=== PATIENT | female | born 1940 | race Caucasian/White ===

== ENCOUNTER 2023-11-04 18:13 | Inpatient (IN) | payer OTHER, SELFPAY ==
[2023-11-04] VITALS (15 sets, daily range): BP systolic 114–168; BP diastolic 62–80; PULSE 83–104; BMI 22.3
--- NOTE | 2023-11-04 12:27 | ED.GENMED ---
History of Present Illness
<Aliya Ram PA-C - Last Filed: 11/04/23 17:04>
General
Chief Complaint: Failure to Thrive
Source: patient
Exam Limitations: none
Time Seen by Provider: 11/04/23 12:26
Nursing documentation reviewed up to this point in time: agreed with
Travel History
Have you had any contact with someone who has COVID-19?: No
Do you have any symptoms of coronavirus? Fever > 100 degrees, chills, cough, shortness of breath, sore throat, loss of taste or smell, muscle aches, or headache?: No
History of Present Illness
History of Present Illness:
83-year-old female with a past medical history of hypertension, hyperlipidemia, NIDDM, CVA presenting emergency department today with her son with concerns of dizziness, recurrent falls, incontinence/decreased appetite. Son reports that over the
past few months, patient has been falling more often. Son reports that patient lives alone in her own house with no home nurse/health aid and he will come to visit her and he will tell her that she felt these before. Patient unable to recall the
exact details of these falls, but she does report that are usually due to her dizziness. Patient reports that she has been feeling dizzy over the past few weeks and feels like she might faint when she walks around. She states that when she walks,
she will have to to grab onto something, and she often will fall because of this. Patient recently fell 2 days ago and she is unable to recall the mechanism of injury, unable to recall if she hit her head, but does recall that she felt dizzy prior.
Son reports that when he visits her recently, she is also been sleeping way more the past few weeks, and has had coughing and decreased appetite the past week. Son and patient also reports that there has been increasing urinary incontinence the
past few months and patient has had to rely on diapers. Patient denies any fevers or chills, dysuria, chest pain, abdominal pain, headache. She does have some associated nausea with her dizziness denies any vomiting. She does have occasional
shortness of breath with ambulating.
Past History
<Aliya Ram PA-C - Last Filed: 11/04/23 17:04>
Past History
ED Past Medical History: CVA, HTN, Hypercholesterolemia and NIDDM
ED Past Surgical History: Orthopedic
Social History
Tobacco: Non-smoker
Alcohol: None
Drug: None
Personal:
Living: with family
Employment: Employed
Family History
Family History: Other (Noncontributory)
Review of Systems
<Aliya Ram PA-C - Last Filed: 11/04/23 17:04>
Review of Systems
All Other Systems: ROS reviewed and negative except as documented in HPI and ROS
Phy Exam
<Aliya Ram PA-C - Last Filed: 11/04/23 17:04>
Physical Exam
Physical Exam:
Vitals: Vital signs are stable
General: Patient appears older than stated age, ill-appearing
Skin: Warm and dry, some scattered areas of ecchymosis on the anterior shins bilaterally, no other signs of trauma
Head: Normocephalic, atraumatic, no tenderness palpation, no palpable hematomas
Cardiac: Regular rate and rhythm, no murmurs, rubs, gallops. Tenderness palpation of the right lower external chest wall, no crepitus.
Peripheral vascular: No lower extremity edema, 2+ dorsalis pedis pulses bilaterally.
Pulm: Regular respiratory effort, decreased lung sounds on the right side, no wheezes, rales, rhonchi.
Abdomen: No ecchymosis, no abdominal scars, no signs of trauma. No abdominal tenderness to palpation.
Musculoskeletal: As expressed above, patient does have tenderness palpation of the right lower chest wall. Patient has no tenderness palpation bilateral hips. Patient has full range of motion bilateral upper extremities. No tenderness to
palpation of the cervical, thoracic, lumbar spine. Patient seen spontaneously moving cervical spine.
Neuro: Patient is oriented to person and place but not time. Patient is lethargic and will appear to fall asleep when not talking to her or addressing her by name. CN II-XII intact, finger to nose testing, heel to sin testing intact.
Course
<Aliya Ram PA-C - Last Filed: 11/04/23 17:04>
Orders/Labs/Results
Orders:
Orders
11/04/23 12:51
0.9% Sodium Chloride 500 ml [Nss] 500 ml IV BOLUS
11/04/23 12:56
Electrocardiogram (*1) Urgent
Reason for Study: Shortness of Breath
EKG- Treatment ONCE
11/04/23 12:57
CT Head W/o Iv Contrast Urgent
Comment:
Reason For Exam: altered mental status, fall
Cardiac Monitoring- Treatment ONCE
11/04/23 13:03
CPK [Creatine Phosphokinase] Urgent
Complete Blood Count/With Diff Urgent
Comprehensive Metabolic Panel Urgent
Magnesium Urgent
Troponin I Urgent
11/04/23 13:05
Urinalysis Reflex To Culture Urgent
Date Specimen was Collected: 11/04/23
Time Specimen was Collected: 13:04
Urine Microscopic Reflex Cult Urgent
Urine Culture Urgent
BRANDI Source: U
Specimen Description:
Date Specimen was Collected: 11/04/23
Time Specimen was Collected: 13:04
11/04/23 13:21
CR Ribs-right 3 Vw W/pa Chest* Urgent
Comment:
Reason For Exam: right sided rib pain, shortness of breath
11/04/23 13:22
COVID-19 Antigen Urgent
Source: Nasal Swab
11/04/23 13:32
Orthostatic VS- Treatment ONCE
11/04/23 14:06
Magnesium Sulfate 1 grams 0.9% Sodium Chloride 100 ml [Nss] 100 ml IV NOW
11/04/23 14:15
0.9% Sodium Chloride 1000 ml [Nss] 1,000 ml IV 100 mls/hr
Abnormal Lab Results
11/04/23 11/04/23
13:03 13:05
RBC 3.11 L 10^6/uL
(4.20-5.40)
Hgb 10.5 L g/dL
(12.0-16.0)
Hct 28.7 L %
(37.0-47.0)
MCH 33.8 H pg
(27.0-31.0)
Absolute Lymphs (auto) 1.1 L 10^3/uL
(1.2-3.4)
Lymphocytes % 19.1 L %
(20.5-51.1)
Monocytes % 10.1 H %
(1.7-9.3)
Sodium 129 L mmol/L
(135-145)
Chloride 95 L mmol/L
(98-107)
BUN 61 H mg/dl
(7-17)
Creatinine 1.6 H mg/dL
(0.6-1.0)
Glucose 314 H mg/dl
(70-99)
Calcium 12.8 H mg/dl
(8.4-10.2)
Magnesium 1.2 L mg/dl
(1.6-2.3)
Creatine Kinase < 20 L U/L
(30-135)
Troponin I 0.057 H* ng/ml
Leukocyte Esterase Rfl 1+ A
(Negative)
Urine RBC 3-6 A /HPF
(0-2)
Urine Bacteria (Reflex) Few A
(Negative)
Urine Glucose Trace A
(Negative)
Urine Albumin (Reflex) 1+ A
(Neg - Trace)
11/04/23 13:03
03/03/24 13:03
Vital Signs
Initial and Last Documented VS:
Initial Vital Signs
Temp Pulse Resp BP Pulse Ox
98.5 F 91 16 124/74 97
11/04/23 12:21 11/04/23 12:21 11/04/23 12:21 11/04/23 12:21 11/04/23 12:21
Last Documented Vital Signs
Temp Pulse Resp BP Pulse Ox
98.5 F 78 19 135/63 99
11/04/23 12:21 11/04/23 16:30 11/04/23 16:30 11/04/23 16:00 11/04/23 16:30
<Samm Muñoz MD - Last Filed: 11/04/23 15:55>
Orders/Labs/Results
Orders:
Orders
11/04/23 12:51
0.9% Sodium Chloride 500 ml [Nss] 500 ml IV BOLUS
11/04/23 12:56
Electrocardiogram (*1) Urgent
Reason for Study: Shortness of Breath
EKG- Treatment ONCE
11/04/23 12:57
CT Head W/o Iv Contrast Urgent
Comment:
Reason For Exam: altered mental status, fall
Cardiac Monitoring- Treatment ONCE
11/04/23 13:03
CPK [Creatine Phosphokinase] Urgent
Complete Blood Count/With Diff Urgent
Comprehensive Metabolic Panel Urgent
Magnesium Urgent
Troponin I Urgent
11/04/23 13:05
Urinalysis Reflex To Culture Urgent
Date Specimen was Collected: 11/04/23
Time Specimen was Collected: 13:04
Urine Microscopic Reflex Cult Urgent
Urine Culture Urgent
BRANDI Source: U
Specimen Description:
Date Specimen was Collected: 11/04/23
Time Specimen was Collected: 13:04
11/04/23 13:21
CR Ribs-right 3 Vw W/pa Chest* Urgent
Comment:
Reason For Exam: right sided rib pain, shortness of breath
11/04/23 13:22
COVID-19 Antigen Urgent
Source: Nasal Swab
11/04/23 13:32
Orthostatic VS- Treatment ONCE
11/04/23 14:06
Magnesium Sulfate 1 grams 0.9% Sodium Chloride 100 ml [Nss] 100 ml IV NOW
11/04/23 14:15
0.9% Sodium Chloride 1000 ml [Nss] 1,000 ml IV 100 mls/hr
Abnormal Lab Results
11/04/23 11/04/23
13:03 13:05
RBC 3.11 L 10^6/uL
(4.20-5.40)
Hgb 10.5 L g/dL
(12.0-16.0)
Hct 28.7 L %
(37.0-47.0)
MCH 33.8 H pg
(27.0-31.0)
Absolute Lymphs (auto) 1.1 L 10^3/uL
(1.2-3.4)
Lymphocytes % 19.1 L %
(20.5-51.1)
Monocytes % 10.1 H %
(1.7-9.3)
Sodium 129 L mmol/L
(135-145)
Chloride 95 L mmol/L
(98-107)
BUN 61 H mg/dl
(7-17)
Creatinine 1.6 H mg/dL
(0.6-1.0)
Glucose 314 H mg/dl
(70-99)
Calcium 12.8 H mg/dl
(8.4-10.2)
Magnesium 1.2 L mg/dl
(1.6-2.3)
Creatine Kinase < 20 L U/L
(30-135)
Troponin I 0.057 H* ng/ml
Leukocyte Esterase Rfl 1+ A
(Negative)
Urine RBC 3-6 A /HPF
(0-2)
Urine Bacteria (Reflex) Few A
(Negative)
Urine Glucose Trace A
(Negative)
Urine Albumin (Reflex) 1+ A
(Neg - Trace)
11/04/23 13:03
11/04/23 13:03
Vital Signs
Initial and Last Documented VS:
Initial Vital Signs
Temp Pulse Resp BP Pulse Ox
98.5 F 91 16 124/74 97
11/04/23 12:21 11/04/23 12:21 11/04/23 12:21 11/04/23 12:21 11/04/23 12:21
Last Documented Vital Signs
Temp Pulse Resp BP Pulse Ox
98.5 F 78 19 135/63 99
11/04/23 12:21 11/04/23 16:30 11/04/23 16:30 11/04/23 16:00 11/04/23 16:30
<Aliya Ram PA-C - Last Filed: 11/04/23 17:04>
MDM/Problems Addressed
Differential Diagnosis Includes:
Differentials include dementia, urinary tract infection, pneumonia, COVID-19 infection, right rib fracture, pneumothorax, hemothorax
MDM/Problems Addressed:
incontinence
decreased appetite
deconditioning
dizziness
Chronic conditions affecting care: DM and HTN
Acute Exacerbation and/or Progression of Chronic Illness: DM and HTN
<Aliya Ram PA-C - Last Filed: 11/04/23 17:04>
*Pulse Oximetry
Patient hypoxic: no
*Molder Shoulder Pad Interpretation
Rate: normal
Heart Rate: 88
Rhythm: sinus and other (spinal stimulator interference )
*Critical Care Note
Total Time (30-74mins, 75-104mins- exclusive of procedures): Not Applicable
Data Reviewed
Review of Other/Old Records Reveals: Records (reviewed ER physician documentation from 05/22/21, 06/12/18) and Discharge Summary (reviewed discharge summary from 09/13/11)
Source: patient and records
<Aliya Ram PA-C - Last Filed: 11/04/23 17:04>
Patient Management
Escalation/DeEscalation of care consider admission/obs:
83-year-old female with a past medical history of hypertension, hyperlipidemia, NIDDM, CVA presenting emergency department today with her son with concerns of dizziness, recurrent falls, incontinence/decreased appetite. Son reports that over the
past few months, patient has been falling more often. Patient unable to recall the exact details of these falls, but she does report that are usually due to her dizziness. On physical exam, patient appears dehydrated and has tenderness to palpation
of the right ribs. CR negative for rib fracture, pneumonia. CMP consistent with dehydration and electrolyte abnormalities. We will plan to admit for continued IV fluids, electrolyte repletion, further evaluation of her dizziness. Patient accepted by
hospitalist.
ED Attending Note
<Aliya Rma PA-C - Last Filed: 11/04/23 17:04>
-
Portions of this chart may have been created with voice recognition software.� Occasional wrong word or��sound alike� substitutions may have occurred due to the inherent limitations of voice recognition software.
<Samm Muñoz MD - Last Filed: 11/04/23 15:55>
ED Attending Note
Patient seen and examined by attending physician: Yes
ED Attending Note:
Patient presents to ED secondary to generalized weakness, along with decreased oral intake due to lack of appetite over the past 2 weeks, which has caused patient to fall multiple times. Patient denies loss of consciousness. Patient denies any
injuries from the fall, but does report scraping of her knee from the fall. Denies headache. Denies blurred vision. Denies dizziness. Denies chest pain or shortness of breath. Denies vomiting or diarrhea. Per family, patient has lost
significant weight due to lack of oral intake. Patient current lives at home alone.
Physical Exam
General: mild distress, not acutely ill. afebrile. weak appearing.
Head: nc/at. eomi
Neck: supple. normal range of motion.
Heart: s1/s2 regular rate and rhythm, no murmur. equal radial pulses.
Lungs: no acute respiratory distress. clear bilaterally
Abdomen: normal bowel sounds. not tender.
Neuro: alert and oriented. no focal neurological deficits. normal speech.
Skin: no rash
Psychiatric: well kept. interactive and cooperative
Extremities: no edema. no calf tenderness.
History and exam along with blood work significant for electrolyte abnormalities as well as acute renal failure, consistent with moderate dehydration. Patient will be admitted for continued IV fluids and further evaluation. Patient may benefit
from case management consultation, as patient's long-term safety is in question, as patient currently lives alone.
Discharge Plan
Departure
Patient Disposition: Admit
Date of Disposition: 11/04/23
Time of Disposition: 16:53
Admit to doctor: Dr. Martin
Presentation/result/management discussed w/ accepting MD/DO: Hospitalist
Patient with high blood pressure during this ER visit?: Yes
Condition: Good
Discharge Problem:
Dizziness, Acute kidney injury
Prescriptions:
No Action
atorvastatin 40 MG tablet
40 mg PO DAILY
ascorbic acid (vitamin C) [Vitamin C] 500 MG tablet
1,000 mg PO DAILY
glipizide 5 MG tablet
10 mg PO DAILY
cholecalciferol (vitamin D3) 2,000 UNITS tablet
2,000 unit PO DAILY
Ca-D3-mag uz-qaxv-sil-sherlyn-bor [Calcium 600-D3 Plus (mag-zinc)] 1 EACH tablet
2 ea PO DAILY
cyanocobalamin (vitamin B-12) 1,000 mcg Tablet
1,000 mcg PO DAILY
fexofenadine [Viktoriya] 180 mg Tablet
180 mg PO DAILY
aspirin 81 mg Tablet,Delayed Release (Dr/Ec)
81 mg PO DAILY
losartan-hydrochlorothiazide 100-25 mg Tablet
1 tab PO DAILY
Patient Comments:
no pharmacy data for fills
glipizide 5 mg Tablet
5 mg PO QPM
Fiber Choice Tablet,Chewable
2 tab PO BID
venlafaxine 225 mg Tablet Extended Release 24hr
225 mg PO DAILY
Trulicity 1.5 mg/0.5 mL Pen Injector
1.5 mg SC TINAJERO
IBgard 90 mg Capsule,Delayed,Extend.Release
90 mg PO TID
Referrals:
Alejandro Hernandez MD [Family Provider] -
Interventions
Interventions:
*Risk Screen - Suicide Last Done: 11/04/23 12:21
*Neglect/Abuse Screening Last Done: 11/04/23 12:21
*ED COVID-19 Vaccine History Last Done: 11/04/23 12:21
[2023-11-04] MEDS: NSS 500 IV (13:06)
[2023-11-04 13:16] LABS: % Basophils 0.5 % (0-2); % Eosinophils 2.2 % (0-6); % Immature Granulocytes 0.5 % (0-0.5); % Lymphocytes 19.1 % (20.5-51.1); % Monocytes 10.1 % (1.7-9.3); % Neutrophils 67.6 % (42.2-75.2); Absolute Eosinophils 0.1 10^3/uL (0-0.7); Absolute Lymphocytes 1.1 10^3/uL (1.2-3.4); Absolute Monocytes 0.6 10^3/uL (0.1-0.6); Absolute Neutrophils 3.8 10^3/uL (1.4-6.5); Hematocrit 28.7 % (37.0-47.0); Hemoglobin 10.5 g/dL (12.0-16.0); Mean Corp Hgb Conc. 36.6 g/dL (33.0-37.0); Mean Corpuscular Hgb 33.8 pg (27.0-31.0); Mean Corpuscular Volume 92.3 fL (81.0-99.0); Mean Platelet Volume 9.4 fL (7.4-10.4); Nucleated Red Blood Cells % 0 %; Platelet Count 207 10^3/uL (130-400); Red Blood Cell Count 3.11 10^6/uL (4.20-5.40); Red Cell Dist. Width 13.6 % (11.5-14.5); White Blood Cell Count 5.6 10^3/uL (4.8-10.8)
[2023-11-04 13:24] LABS: Urine Albumin 1+ (Neg - Trace); Urine Bilirubin Negative (Negative); Urine Character Clear (Clear); Urine Color Yellow; Urine Glucose Trace (Negative); Urine Ketone Negative (Negative); Urine Leukocyte 1+ (Negative); Urine Nitrite Negative (Negative); Urine Occult Blood Negative (Negative); Urine Specific Gravity 1.025 (<1.030); Urine Urobilinogen Negative (Neg - 1+)
[2023-11-04 13:32] LABS: Urine Mucus Few; Urine Squamous Cell 21-25 /LPF (Few)
[2023-11-04 13:33] LABS: Urine Bacteria Few (Negative)
[2023-11-04 13:34] LABS: ALT (SGPT) 35 U/L (0-35); AST (SGOT) 30 U/L (14-36); Alkaline Phosphatase 77 U/L (38-126); Blood Urea Nitrogen 61 mg/dl (7-17); Calcium 12.8 mg/dl (8.4-10.2); Carbon Dioxide 29 mmol/L (22-30); Chloride 95 mmol/L (98-107); Creatine Phosphokinase < 20 U/L (30-135); Glucose 314 mg/dl (70-99); Magnesium 1.2 mg/dl (1.6-2.3); Potassium 3.9 mmol/L (3.5-5.1); Sodium 129 mmol/L (135-145); Total Bilirubin 0.7 mg/dl (0.2-1.3); Total Protein 6.8 g/dl (6.3-8.2); eGFR 31.41
[2023-11-04 13:43] LABS: COVID-19 Antigen Negative (Negative)
[2023-11-04 13:57] LABS: Troponin I 0.057 ng/ml
[2023-11-04] MEDS: MAGNESIUM SULFATE 102 GRAMS IV (14:40)
[2023-11-04] MEDS: NSS 1000 IV (14:41)
--- NOTE | 2023-11-04 17:29 | HPS.HSE ---
Addendum entered and electronically signed by Maritza Martin MD 11/04/23 23:16:
For hyponatremia and KENNA, holding the hctz. Continuing losartan for BP control as expectation is to improve with IV fluids.
Original Note:
Family Physician
-
Family Physician: Alejandro Hernandez
Chief Complaint
-
Dizziness and failure to thrive
History of Present Illness
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
for dizziness, recurrent falls and decreased oral intake.
Family did noted as symptoms began most significantly about a week ago where she essentially stopped eating. She was only supplemented myself with the boost or Ensure. Patient reports decreased appetite but denies any difficulty with chewing or
swallowing. She denies vomiting. She denies regurgitation. She denies abdominal pain or discomfort. After the fall recently she did have right-sided upper quadrant/CVA pain. She does report increased urinary frequency. She believes is
secondary to stimulator that she has in her back. She denies dysuria. She denies hematuria. Patient denies dyspepsia, hematemesis, melena or hematochezia. She denies having any diarrhea. She has not had any fevers or chills. She denies cold
cough or flulike symptoms. She is mostly inactive but denies any specific weakness. She has noncommittal statement regarding heat or cold intolerance. She denies any changes to the color of her eyes or skin or changes to the color of her stool.
She was seen at the PMD clinic about a month ago and at that time was noted to have significantly elevated triglycerides in the 500s, elevated cholesterol as well uncontrolled blood glucose in the 300s. Patient reports compliance with medication
but not convincingly so. She denies vertigo. She does feel lightheaded and has to hold onto something when she is standing and walking.
On arrival in the ED she was normotensive, nontachycardic with a oxygen saturation of 90% on nasal cannula. ECG w/ NSR, no acute ST or t wave changes. Troponin was 0.05. She has no chest pain. Chest x-ray was clear with some atelectasis. CT of
the head was negative. UA was unremarkable. COVID test was negative. CBC was unremarkable. Chemistries does show hyponatremia with a sodium of 129, azotemia with a BUN of 69 and a creatinine of 1.6 with a blood glucose of 314. Magnesium was 1.2.
Medical History
Past Medical History
Past Medical History: Reports CVA, HTN, Hypercholesterolemia and NIDDM
Past Surgical History: Reports None
Social History
Tobacco: Non-smoker
Alcohol: None
Drug: None
Personal: Single
Living: Alone
Employment: Retired
Family History
Family History: Not pertinent
Allergies / Home Medications
Allergies reflects when Allergies were last updated in [employer].
Home Medications with original date entered in [employer]
Allergy/Medication List:
Allergies
Allergy/AdvReac Type Severity Reaction Status Date / Time
No Known Allergies Allergy Verified 05/22/21 14:52
Home Medications
Ca 600 mg-D3 20 mcg-mag oxide 50 iq-Ku-qbcyeu-manganese-boron tablet (Calcium 600-D3 Plus (mag-zinc)) 2 ea PO DAILY 06/12/18
ascorbic acid (vitamin C) 500 mg tablet (Vitamin C) 1,000 mg PO DAILY 06/12/18
atorvastatin 40 mg tablet 40 mg PO DAILY 06/12/18
cholecalciferol (vitamin D3) 50 mcg (2,000 unit) tablet 2,000 unit PO DAILY 06/12/18
glipizide 5 mg tablet 10 mg PO DAILY 06/12/18
aspirin 81 mg tablet,delayed release 81 mg PO DAILY 11/04/23
cyanocobalamin (vitamin B-12) 1,000 mcg tablet 1,000 mcg PO DAILY 11/04/23
dulaglutide 1.5 mg/0.5 mL subcutaneous pen injector ([facility]) 1.5 mg SC TINAJERO 11/04/23
fexofenadine 180 mg tablet 180 mg PO DAILY 11/04/23
fiber 2 tab PO BID 11/04/23
glipizide 5 mg tablet 5 mg PO QPM 11/04/23
losartan 100 mg-hydrochlorothiazide 25 mg tablet 1 tab PO DAILY 11/04/23
peppermint oil 90 mg capsule,delayed,extended release (IBgard) 90 mg PO TID 11/04/23
venlafaxine 225 mg tablet,extended release 24 hr 225 mg PO DAILY 11/04/23
Review of Systems
-
History Source: Patient and Family
Constitutional: Reports No Symptoms
EENT: Reports No Symptoms
Respiratory: Reports No Symptoms
Cardiac: Reports No Symptoms
Abdomen/GI: Reports Nausea
: Reports Frequency
Musculoskeletal: Reports No Symptoms
Skin: Reports No Symptoms
Neurological: Reports Dizzy
Endocrine: Reports No Symptoms
Hematologic/Lymphatic: Reports No Symptoms
Psych: Reports No Symptoms
Physical Exam
Vital Signs
Vital Signs
Temp Pulse Resp BP Pulse Ox
98.5 F 85 20 140/62 99
11/04/23 12:21 11/04/23 17:15 11/04/23 17:00 11/04/23 17:00 11/04/23 17:15
Physical Exam
General: No Apparent Distress
HEENT: NormoCephalic, Anicteric, Moist mucous membranes, Atraumatic, PERRLA, [place] Conjunctivae, No Ptosis and Oxygen
Respiratory: Clear
Cardiac: S1/S2 and Regular Rhythm
Breast: Deferred by me
GI: Soft, Non Distended and Tender (RUQ tenderness )
Rectal: Deferred by Provider
Genito-urinary: Deferred by me
Musculoskeletal: No Clubbing, No Cyanosis and No Edema
Skin: Warm
Neuro: AO x 3, No Motor Deficits (4/5 in right upper and lower extremities unchanged from prior), Cranial Nerves Intact and No Sensory Deficits
Hematologic/Lymphatic: No Lymphadenopathy
Psych: Calm and Depressed
Laboratory Results
-
11/04/23 13:03
11/04/23 13:03
Laboratory Results
Total Bilirubin 0.7 mg/dl (0.2-1.3) 11/04/23 13:03
AST 30 U/L (14-36) 11/04/23 13:03
ALT 35 U/L (0-35) 11/04/23 13:03
Alkaline Phosphatase 77 U/L (38-126) 11/04/23 13:03
Troponin I 0.057 ng/ml H* 11/04/23 13:03
Data Reviewed
-
Diagnostic Radiology: Image Personally Visualized and interpreted and Report Reviewed by me
CT Scan: Report Reviewed by me
Lab Data: Labs Reviewed by me
Old Records: Reviewed
Impression/Plan
-
IMPRESSION:
83 y.o female who lives alone and has hx of diabetes, htn, hld, CVA with residual right sided weakness presenting to ED with dizziness and failure to thrive. Exam is non-focal and no finding suggestive of infection. Troponin is slightly abnormal
at 0.05 but no clinical finding c/w ischemia nor ECG c/w ischemia. CT head unremarkable. U/A negative, covid, negative, xray w/o acute infiltrates. Labs with azotemia BUN 69, Cr 1.6 suggestive of dehydration. Na 129 also c/w such. Glucose
elevated at 314 which appears to have been persistently so since september. Suspect uncontrolled diabetes, polyuria with dehydration and orthostatic dizziness. FTT possibly secondary to depression vs hypothyroidism.
PLAN:
1. Azotemia - Suspect KENNA with pre-renal azotemia in setting of polyuria, decreased po intake and continued losarta/hctz use.
- admit to tele on account of abnormal trop
- continue iv fluids with normal saline at 100 ml/hr
- daily orthostatic vital signs
- avoid nephrotoxin
2. Troponin elevation - Non-cardiac elevation. Normal ECG. No chest pain.
- telemetry, cycle enzymes, d/c telemetry if enzymes stable.
- continue aspirin and statin
- repeat ECG in am
3. Hyperglycemia - DM II on dulaglutide and glipizide. Last A1c in sep 8.8. glucose 340 at outpatient clinic. Urinary frequency likely secondary to polyuria. Suspect non-adherence
- start insulin bolus and sliding scale
- continue glipizide 10 daily for now
- check a1c
- IV fluids as above
4. Hyponatremia - hypovolemic hyponatremia suspected.
- Iv fluids
- orthostatics
- check tsh
5. Hypercalcemia - Ca 12.8. On calcium and Vit D supplementation. Possibly also dehydrated.
- IV fluids as above
- check pth and vitamin d
- hold calcium and vitamin supplementation
6. RUQ discomfort - Mild TTP. Normal LFTs. Checking lipase and trig levels given elevated trig to around 500 on routine tests at office in september
- continue statin for now
- antiemetics and pain control
7. FTT - depression vs hypothyroid
- check tsh, b12, folate, thiamine
- continue vitamin supplementation
- consider thiamine supplementation
- pt eval
DVT PPX with lovenox sq
code status Full code
[2023-11-04 18:55] LABS: Lipase 104 U/L (23-300)
[2023-11-04 19:12] LABS: Glucose - Point of Care 125 mg/dl (70-99)
--- NOTE | 2023-11-04 20:10 | PTCARENOTE ---
Pt arrived from ED via stretcher and stand-pivot w/ rolling walker to bed. Pt is AAx2 disoriented to place, VSS sating 99% 2L NC, on NSS @100ml/hr, w/o complaints of pain. Pt is oriented to room resting comfortably w/ call gates within reach.
[2023-11-04] MEDS: HEPARIN 5000 UNITS SC (23:23)
[2023-11-04 23:30] LABS: Glucose - Point of Care 269 mg/dl (70-99)
[2023-11-05] VITALS (7 sets, daily range): BP systolic 104–154; BP diastolic 52–74; PULSE 76; O2SAT 97
[2023-11-05 00:20] LABS: Troponin I 0.065 ng/ml
[2023-11-05] MEDS: NSS 1000 IV ×2 (05:49→15:38)
[2023-11-05 07:04] LABS: Glucose - Point of Care 185 mg/dl (70-99)
[2023-11-05 08:12] LABS: Hematocrit 26.9 % (37.0-47.0); Hemoglobin 9.7 g/dL (12.0-16.0); Mean Corp Hgb Conc. 36.1 g/dL (33.0-37.0); Mean Corpuscular Hgb 34.3 pg (27.0-31.0); Mean Corpuscular Volume 95.1 fL (81.0-99.0); Mean Platelet Volume 9.5 fL (7.4-10.4); Platelet Count 185 10^3/uL (130-400); Red Blood Cell Count 2.83 10^6/uL (4.20-5.40); Red Cell Dist. Width 13.7 % (11.5-14.5); White Blood Cell Count 4.6 10^3/uL (4.8-10.8)
[2023-11-05 08:43] LABS: Blood Urea Nitrogen 49 mg/dl (7-17); Calcium 11.2 mg/dl (8.4-10.2); Carbon Dioxide 27 mmol/L (22-30); Chloride 102 mmol/L (98-107); Estimated Creatinine Clearance 28 ml/min; Glucose 158 mg/dl (70-99); HDL Cholesterol 23 mg/dl; LDL Cholesterol, Calculated 25 mg/dl; Lipase 134 U/L (23-300); Magnesium 1.4 mg/dl (1.6-2.3); Potassium 3.9 mmol/L (3.5-5.1); Sodium 133 mmol/L (135-145); Total Cholesterol 145 mg/dl (50-199); Triglyceride 485 mg/dl (10-149); Triglycerides 485 mg/dl (10-149); Very Low Density Lipoprotein 97 mg/dl (0-30); eGFR 36.87
[2023-11-05 08:52] LABS: Troponin I 0.057 ng/ml
[2023-11-05] MEDS: NOVOLOG FLEXPEN-LOW RESISTANCE 1 UNITS SC ×2 (08:59→16:50)
[2023-11-05] MEDS: GLUCOTROL 10 MG PO (09:00)
[2023-11-05] MEDS: ASPIR LOW (ENTERIC COATED) 81 MG PO (09:00)
[2023-11-05] MEDS: HEPARIN 5000 UNITS SC ×3 (09:00→23:04)
[2023-11-05] MEDS: MAGNESIUM OXIDE 500 MG PO (09:00)
[2023-11-05] MEDS: CLARITIN 10 MG PO (09:00)
[2023-11-05] MEDS: COZAAR 100 MG PO (09:00)
[2023-11-05] MEDS: EFFEXOR XR 225 MG PO (09:00)
[2023-11-05] MEDS: LIPITOR 40 MG PO (09:00)
[2023-11-05] MEDS: VITAMIN B-12 1000 MCG PO (09:00)
[2023-11-05 09:08] LABS: Glycohemoglobin (HgbA1c) 8.9 % (4.0-5.6); LDL Cholesterol, Direct 62 mg/dl
--- NOTE | 2023-11-05 10:11 | W.PN.HOSP.TC ---
Today's Communication/Plan
-
I would continue on IV fluids at reduced rate
Address metabolic profile labs pending
Continue to monitor BMP and calcium
PT/OT assessment to assess compatibility for going back to home versus SNF/suspect underlying dementia
Assessment / Plan
Assessment / Plan
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
for dizziness, recurrent falls and decreased oral intake.
Family did noted as symptoms began most significantly about a week ago where she essentially stopped eating.� She was only supplemented myself with the boost or Ensure.� Patient reports decreased appetite but denies any difficulty with chewing or
swallowing.� She denies vomiting.� She denies regurgitation.� She denies abdominal pain or discomfort.� After the fall recently she did have right-sided upper quadrant/CVA pain.� She does report increased urinary frequency.� She believes is
secondary to stimulator that she has in her back.� She denies dysuria.� She denies hematuria.� Patient denies dyspepsia, hematemesis, melena or hematochezia.� She denies having any diarrhea.� She has not had any fevers or chills.� She denies cold
cough or flulike symptoms.� She is mostly inactive but denies any specific weakness.� She has noncommittal statement regarding heat or cold intolerance.� She denies any changes to the color of her eyes or skin or changes to the color of her stool.�
She was seen at the PMD clinic about a month ago and at that time was noted to have significantly elevated triglycerides in the 500s, elevated cholesterol as well uncontrolled blood glucose in the 300s.� Patient reports compliance with medication
but not convincingly so.� She denies vertigo.� She does feel lightheaded and has to hold onto something when she is standing and walking.
On arrival in the ED she was normotensive, nontachycardic with a oxygen saturation of 90% on nasal cannula.� ECG w/ NSR, no acute ST or t wave changes.� Troponin was 0.05.� She has no chest pain.� Chest x-ray was clear with some atelectasis.� CT of
the head was negative.� UA was unremarkable.� COVID test was negative.� CBC was unremarkable.� Chemistries does show hyponatremia with a sodium of 129, azotemia with a BUN of 69 and a creatinine of 1.6 with a blood glucose of 314.� Magnesium was 1.2.
1. Azotemia - Suspect KENNA with pre-renal azotemia in setting of polyuria, decreased po intake and continued losarta/hctz use.
- admit to tele on account of abnormal trop/has remained in sinus rhythm
- continue iv fluids with normal saline at 100 ml/hr/will reduce down to 60 cc/h
- daily orthostatic vital signs
-PT/OT
- avoid nephrotoxin
2. Troponin elevation - Non-cardiac elevation.� Normal ECG.� No chest pain.�
- telemetry, cycle enzymes, d/c telemetry if enzymes stable.
- continue aspirin and statin
- repeat ECG in am
3. Hyperglycemia - DM II on dulaglutide and glipizide.� Last A1c in sep 10.8.� glucose 340 at outpatient clinic.� Urinary frequency likely secondary to polyuria.� Suspect non-adherence
- start insulin bolus and sliding scale
- continue glipizide 10 daily for now
- check a1c
- IV fluids as above
4. Hyponatremia - hypovolemic hyponatremia suspected.�
- Iv fluids continue but reduce rate
- orthostatics
- check tsh
5.� Hypercalcemia -� Ca 12.8.� On calcium and Vit D supplementation.� Possibly also dehydrated.�
- IV fluids as above/seem to be trending down with fluids down to 11.2 today
- check pth and vitamin d
- hold calcium and vitamin supplementation�
6. RUQ discomfort - Mild TTP.� Normal LFTs.� Checking lipase and trig levels given elevated trig to around 500 on routine tests at office in september
- continue statin for now
- antiemetics and pain control
7. FTT - depression vs hypothyroid
- check tsh, b12, folate, thiamine all pending lipase was normal
- continue vitamin supplementation
- consider thiamine supplementation
- pt eval
DVT PPX with lovenox sq
code status Full code
Anticipated Discharge: 24 - 48 hours
Subjective/Interval History
-
Date of Service: November 05, 2023
Poor historian/apparent dementia spoke to patient's son at bedside who related more history. Apparently patient has been having long periods of for oral intake including fluids and meals
Objective Data
-
Labs:
Laboratory Results
11/05/23
07:52
WBC 4.6 L
Hgb 9.7 L
Hct 26.9 L
Plt Count 185
Sodium 133 L
Potassium 3.9
Chloride 102
Carbon Dioxide 27
BUN 49 H
Creatinine 1.4 H
Glucose 158 H
Calcium 11.2 H
Vital Signs:
Vital Signs
Temp Pulse Resp BP Pulse Ox
97.8 F 79 18 123/52 95
11/05/23 07:35 11/05/23 09:00 11/05/23 07:35 11/05/23 09:00 11/05/23 07:35
I&O
11/04/23 11/05/23 11/06/23
06:59 06:59 06:59
Intake Total 480 / 480
Balance 480 / 480
Review of Systems
-
Unable to obtain full review of systems at this time due to: Dementia
History Source: Patient
Constitutional: Reports No Appetite, Fatigue and Weakness (Weak in PT yesterday)
Respiratory: Reports No Symptoms
Cardiac: Reports No Symptoms
Abdomen/GI: Reports No Symptoms
Physical Exam
-
General: No Apparent Distress
HEENT: Atraumatic
Respiratory: Clear to Auscultation
Cardiac: Regular Rhythm
GI: Soft, Nontender and Nondistended
Musculoskeletal: No Cyanosis and No Edema
Neuro: Awake and No Motor Deficits; Negative Oriented (Not oriented to time and place)
Psych: Confused and Apparent Dementia
Data Reviewed
-
Total Time Spent with Patient (in minutes): 56
Labs: Labs Reviewed by me (Hemoglobin 9.7 white count 4.6/creatinine down to 1.4 from 1.6 magnesium 1.4 from 1.2 calcium to 11.2 from 12.8)
[2023-11-05 10:30] LABS: TSH 1.28 uIU/ml (0.47-4.68)
[2023-11-05 10:50] LABS: Vitamin B12 858 pg/ml (239-931)
[2023-11-05 11:41] LABS: Glucose - Point of Care 297 mg/dl (70-99)
[2023-11-05] MEDS: NOVOLOG FLEXPEN-LOW RESISTANCE 3 UNITS SC (11:46)
[2023-11-05 12:41] LABS: Troponin I 0.054 ng/ml
[2023-11-05 16:46] LABS: Glucose - Point of Care 197 mg/dl (70-99)
--- NOTE | 2023-11-05 17:22 | CM ---
Reviewed chart, met with patient and her son to obtain information for assessment. Patient's son is a employee and he stated that he can be reached by calling [phone].
Patient's son stated that patient lives alone in a two story home with two steps to enter. She stays on the first floor. She is dependent with her ADLs, personal care, dressing and bathing. She is incontinent of bowel and bladder. Patient's son
stated that he can sometimes assist with ADLs but often she just walks around the house with her walker in depends.
Patient's son does all the computer network specialist, cooking, cleaning and laundry. He drives patient and takes her shopping and takes patient to the provider.
Patient gets [employer] meals however patient does not eat them per her son.
Patient's son would like for patient to transition to SNF and then ltc when she is medically cleared. Patient's son chose all facilities local to [place]. Will make referrals.
Plan: Case management will continue to follow and assist with discharge planning. Patient's son is hopeful for SNF and subsequently ltc.
[2023-11-05 21:12] LABS: Glucose - Point of Care 214 mg/dl (70-99)
[2023-11-05] MEDS: TYLENOL 650 MG PO (23:04)
[2023-11-06] VITALS (7 sets, daily range): BP systolic 129–174; BP diastolic 60–80; PULSE 90–92
[2023-11-06] MEDS: NSS IV (03:08)
[2023-11-06] MEDS: NSS 1000 IV ×2 (03:10→19:38)
[2023-11-06 08:11] LABS: Glucose - Point of Care 169 mg/dl (70-99)
[2023-11-06] MEDS: NOVOLOG FLEXPEN-LOW RESISTANCE 1 UNITS SC ×2 (08:44→17:07)
[2023-11-06] MEDS: ASPIR LOW (ENTERIC COATED) 81 MG PO (08:45)
[2023-11-06] MEDS: GLUCOTROL 10 MG PO (08:45)
[2023-11-06] MEDS: EFFEXOR XR 225 MG PO (08:45)
[2023-11-06] MEDS: COZAAR 100 MG PO (08:45)
[2023-11-06] MEDS: CLARITIN 10 MG PO (08:45)
[2023-11-06] MEDS: LIPITOR 40 MG PO (08:45)
[2023-11-06] MEDS: MAGNESIUM OXIDE 500 MG PO (08:45)
[2023-11-06] MEDS: VITAMIN B-12 1000 MCG PO (08:46)
[2023-11-06] MEDS: HEPARIN 5000 UNITS SC ×3 (08:46→23:01)
--- NOTE | 2023-11-06 09:27 | W.PN.HOSP.TC ---
Addendum entered and electronically signed by Roldan Clements MD 11/06/23 14:11:
Hypomagnesemia
Original Note:
Today's Communication/Plan
-
Continue cautious IV fluids
Will get diabetic ONLINE EDUCATION MANAGER to evaluate need for improved treatment of her hyperglycemia and diabetes
Will need rehab
Assessment / Plan
Assessment / Plan
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
for dizziness, recurrent falls and decreased oral intake.
Family did noted as symptoms began most significantly about a week ago where she essentially stopped eating.� She was only supplemented myself with the boost or Ensure.� Patient reports decreased appetite but denies any difficulty with chewing or
swallowing.� She denies vomiting.� She denies regurgitation.� She denies abdominal pain or discomfort.� After the fall recently she did have right-sided upper quadrant/CVA pain.� She does report increased urinary frequency.� She believes is
secondary to stimulator that she has in her back.� She denies dysuria.� She denies hematuria.� Patient denies dyspepsia, hematemesis, melena or hematochezia.� She denies having any diarrhea.� She has not had any fevers or chills.� She denies cold
cough or flulike symptoms.� She is mostly inactive but denies any specific weakness.� She has noncommittal statement regarding heat or cold intolerance.� She denies any changes to the color of her eyes or skin or changes to the color of her stool.�
She was seen at the PMD clinic about a month ago and at that time was noted to have significantly elevated triglycerides in the 500s, elevated cholesterol as well uncontrolled blood glucose in the 300s.� Patient reports compliance with medication
but not convincingly so.� She denies vertigo.� She does feel lightheaded and has to hold onto something when she is standing and walking.
On arrival in the ED she was normotensive, nontachycardic with a oxygen saturation of 90% on nasal cannula.� ECG w/ NSR, no acute ST or t wave changes.� Troponin was 0.05.� She has no chest pain.� Chest x-ray was clear with some atelectasis.� CT of
the head was negative.� UA was unremarkable.� COVID test was negative.� CBC was unremarkable.� Chemistries does show hyponatremia with a sodium of 129, azotemia with a BUN of 69 and a creatinine of 1.6 with a blood glucose of 314.� Magnesium was 1.2.
1. Azotemia - Suspect KENNA with pre-renal azotemia in setting of polyuria, decreased po intake and continued losarta/hctz use.
- admit to tele on account of abnormal trop/has remained in sinus rhythm
- continue iv fluids with normal saline at 100 ml/hr/will reduce down to 60 cc/h
- daily orthostatic vital signs
-PT/OT
- avoid nephrotoxin
2. Troponin elevation - Non-cardiac elevation.� Normal ECG.� No chest pain.�
- telemetry, cycle enzymes, d/c telemetry if enzymes stable.
- continue aspirin and statin
- repeat ECG in am
3. Hyperglycemia - DM II on dulaglutide and glipizide.� Last A1c in sep 10.8.� glucose 340 at outpatient clinic.� Urinary frequency likely secondary to polyuria.� Suspect non-adherence
- start insulin bolus and sliding scale
- continue glipizide 10 daily for now/apparently had been on Trulicity unclear how compliant she was with this and some not sure
- check a1c up to 8.9 no recent value to compare
-Will get diabetic ONLINE EDUCATION MANAGER to evaluate/probably contributing to her overall poor hydration status
- IV fluids as above
4. Hyponatremia - hypovolemic hyponatremia suspected.�
- Iv fluids continue but reduce rate
- orthostatics
- check tsh
5.� Hypercalcemia -� Ca 12.8.� On calcium and Vit D supplementation.� Possibly also dehydrated.�
- IV fluids as above/seem to be trending down with fluids down to 11.2 today
- check pth and vitamin d
- hold calcium and vitamin supplementation�
6. RUQ discomfort - Mild TTP.� Normal LFTs.� Checking lipase and trig levels given elevated trig to around 500 on routine tests at office in september
- continue statin for now
- antiemetics and pain control
7. FTT - depression vs hypothyroid
- check tsh was normal, b12, folate, thiamine all pending lipase was normal
- continue vitamin supplementation
- consider thiamine supplementation
- pt eval did poorly and needs two-person assist will need rehab/inform son of same/
DVT PPX with lovenox sq
code status Full code
Anticipated Discharge: 24 - 48 hours
Subjective/Interval History
-
Date of Service: November 06, 2023
Remains in denial over her frequent falls and also issues at home and safety son is greatly concerned over her issues at home and her upkeep lack of proper diet multiple falls and inability to monitor diabetic status.
Objective Data
-
Labs:
Laboratory Results
11/06/23
08:57
Sodium Pending
Potassium Pending
Chloride Pending
Carbon Dioxide Pending
BUN Pending
Creatinine Pending
Glucose Pending
Calcium Pending
Vital Signs:
Vital Signs
Temp Pulse Resp BP Pulse Ox
97.7 F 84 18 129/62 96
11/06/23 07:00 11/06/23 07:00 11/06/23 07:00 11/06/23 07:00 11/06/23 07:00
I&O
11/05/23 11/06/23 11/07/23
06:59 06:59 06:59
Intake Total 1320 / 1320
Balance 1320 / 1320
Review of Systems
-
Unable to obtain full review of systems at this time due to: Dementia
History Source: Patient
Constitutional: Reports Weight Loss and Weakness
Respiratory: Reports No Symptoms
Cardiac: Reports No Symptoms
Abdomen/GI: Reports No Symptoms
Musculoskeletal: Reports No Symptoms
Skin: Reports No Symptoms
Neuro: Reports No Symptoms
Physical Exam
-
General: Comfortable
HEENT: Normocephalic
Respiratory: Clear to Auscultation
Cardiac: Regular Rhythm
GI: Soft and Nontender
Musculoskeletal: Other (Abrasions over her knees right side and elbows ecchymosis elsewhere)
Neuro: Awake and Nonfocal/Grossly Intact
Psych: Calm and Confused
Data Reviewed
-
Total Time Spent with Patient (in minutes): 56
Labs: Labs Reviewed by me (Glycohemoglobin 8.9/prior 6.9 in September 2011 (checked/medical labs pending for today)
[2023-11-06 10:19] LABS: Blood Urea Nitrogen 42 mg/dl (7-17); Carbon Dioxide 26 mmol/L (22-30); Chloride 105 mmol/L (98-107); Estimated Creatinine Clearance 32 ml/min; Glucose 201 mg/dl (70-99); Potassium 4.1 mmol/L (3.5-5.1); Sodium 132 mmol/L (135-145); eGFR 44.36
--- NOTE | 2023-11-06 11:12 | PN.DE.MGMTRT ---
Insulin Management
- -
11/06/2023 Diabetes Management Consult
Patient admitted 11/03 with Failure to Thrive, recurrent falls, dizziness, and decreased appetite. PMH HTN, thpe 2 diabetes, CVA, HLD. Prior to admission was taking glipizide 10 mg in am and 5 mg with dinner and trulicity weekly. A1C on admission
8.9%, cr 1.4, eGFR 36.87, improved today cr 1.2, eGFR 44.36.
She was started on glipizide 10 mg daily yesterday; glucose range 185 to 297. Will add 5 mg glipizide with dinner and Januvia 50 mg today, may increase if cr and eGFR improve. Will follow
Diabetes History
- -
Type of Diabetes: 2
Pre-Admission Diabetes Regimen
11/06/23
09:43
Creatinine 1.2 H
Lab Results
Hemoglobin A1c 8.9 % (4.0-5.6) H 11/05/23 07:52
Insulin Pump Settings
IP Diabetes Regimen
11/05/23 11/05/23 11/05/23
11:39 16:45 21:11
Glucose
POC Glucose 297 H 197 H 214 H
11/06/23 11/06/23
08:10 09:43
Glucose 201 H
POC Glucose 169 H
Meal type: Lunch
Amount consumed: 100%
Patient Education
[2023-11-06 11:53] LABS: Glucose - Point of Care 286 mg/dl (70-99)
[2023-11-06] MEDS: JANUVIA 50 MG PO (12:45)
[2023-11-06] MEDS: NOVOLOG FLEXPEN-LOW RESISTANCE 3 UNITS SC (12:45)
--- NOTE | 2023-11-06 13:58 | PN.CDI ---
CDI
- -
CDI:
Physician Documentation Request
Admit Date: 11/04/23 18:13
Dear Doctor Starr,
Please review the following and provide your response in the progress notes.
Clinical Indicators:
- 3/3 1 gram IV Magnesium Sulfate given
- 3/5 PN 'Magnesium was 1.2'
Laboratory Tests
11/04/23 11/05/23
13:03 07:52
Magnesium 1.2 L 1.4 L
Please provide a diagnosis for the above lab values that were monitored and treatment rendered:
Hypomagnesemia
Clinically insignificant abnormal lab value
Other
Use of terms such as suspected, likely, concern for, or probable (associated with a specific diagnosis that is being evaluated, monitored, or treated as if it exists) are acceptable and can be coded in the inpatient setting, when documented at the
time of discharge.
Thank you,
Jacey Beasley RN
CDI Specialist
Please use your independent medical judgment in providing your response.
[2023-11-06 16:55] LABS: Glucose - Point of Care 163 mg/dl (70-99)
[2023-11-06] MEDS: GLUCOTROL 5 MG PO (17:06)
[2023-11-06 21:18] LABS: Glucose - Point of Care 219 mg/dl (70-99)
[2023-11-06] MEDS: TYLENOL 650 MG PO (23:04)
[2023-11-07] VITALS (7 sets, daily range): BP systolic 133–166; BP diastolic 61–79; PULSE 91
[2023-11-07 07:05] LABS: Glucose - Point of Care 147 mg/dl (70-99)
[2023-11-07] MEDS: NOVOLOG FLEXPEN-LOW RESISTANCE SC (07:37)
--- NOTE | 2023-11-07 08:03 | PN.DE.MGMTRT ---
Insulin Management
- -
11/06/2023 Diabetes Management Consult
Patient admitted 11/03 with Failure to Thrive, recurrent falls, dizziness, and decreased appetite. PMH HTN, thpe 2 diabetes, CVA, HLD. Prior to admission was taking glipizide 10 mg in am and 5 mg with dinner and trulicity weekly. A1C on admission
8.9%, cr 1.4, eGFR 36.87, improved today cr 1.2, eGFR 44.36.
She was started on glipizide 10 mg daily yesterday; glucose range 185 to 297. Will add 5 mg glipizide with dinner and Januvia 50 mg today, may increase if cr and eGFR improve. Will follow
11/07/2023 Diabetes Management Follow up
Resumed glipizide 5 mg with dinner in addition to 10 mg with breakfast. Fasting glucose this AM 147. Started Januvia 50 mg in AM. Will continue current regimen and follow glucose for further needed adjustments. Appetite is excellent, continuing
to consume 100% of meals.
Diabetes History
- -
Type of Diabetes: 2
Pre-Admission Diabetes Regimen
11/06/23
09:43
Creatinine 1.2 H
Lab Results
Hemoglobin A1c 8.9 % (4.0-5.6) H 11/05/23 07:52
Insulin Pump Settings
IP Diabetes Regimen
11/06/23 11/06/23 11/06/23
08:10 09:43 11:50
Glucose 201 H
POC Glucose 169 H 286 H
11/06/23 11/06/23 11/07/23
16:53 21:17 07:03
Glucose
POC Glucose 163 H 219 H 147 H
Meal type: Lunch
Meal type: Breakfast
Amount consumed: 100%
Amount consumed: 100%
Patient Education
[2023-11-07 08:17] LABS: Hematocrit 25.5 % (37.0-47.0); Hemoglobin 8.8 g/dL (12.0-16.0); Mean Corp Hgb Conc. 34.5 g/dL (33.0-37.0); Mean Corpuscular Hgb 33.5 pg (27.0-31.0); Mean Platelet Volume 9.7 fL (7.4-10.4); Platelet Count 170 10^3/uL (130-400); Red Blood Cell Count 2.63 10^6/uL (4.20-5.40); Red Cell Dist. Width 13.6 % (11.5-14.5); White Blood Cell Count 5.9 10^3/uL (4.8-10.8)
[2023-11-07 08:50] LABS: Blood Urea Nitrogen 38 mg/dl (7-17); Calcium 9.6 mg/dl (8.4-10.2); Carbon Dioxide 24 mmol/L (22-30); Chloride 106 mmol/L (98-107); Estimated Creatinine Clearance 30 ml/min; Glucose 155 mg/dl (70-99); Potassium 4.5 mmol/L (3.5-5.1); Sodium 138 mmol/L (135-145)
[2023-11-07] MEDS: EFFEXOR XR 225 MG PO (09:24)
[2023-11-07] MEDS: LIPITOR 40 MG PO (09:24)
[2023-11-07] MEDS: GLUCOTROL 10 MG PO (09:24)
[2023-11-07] MEDS: ASPIR LOW (ENTERIC COATED) 81 MG PO (09:24)
[2023-11-07] MEDS: MAGNESIUM OXIDE 500 MG PO (09:24)
[2023-11-07] MEDS: JANUVIA 50 MG PO (09:24)
[2023-11-07] MEDS: HEPARIN 5000 UNITS SC ×3 (09:24→23:04)
[2023-11-07] MEDS: CLARITIN 10 MG PO (09:24)
[2023-11-07] MEDS: DESENEX/MITRAZOL/ZEASORB 1 APPLIC TOPICAL ×2 (09:25→19:32)
[2023-11-07] MEDS: VITAMIN B-12 1000 MCG PO (09:25)
[2023-11-07] MEDS: COZAAR 100 MG PO (09:25)
--- NOTE | 2023-11-07 09:26 | W.PN.HOSP.TC ---
Today's Communication/Plan
-
Patient medically stable for discharge
Okay for subacute nursing facility and rehab and eventual long-term care
Discussed with son
Diabetic management changes instigated per nurse practitioner appreciated
Assessment / Plan
Assessment / Plan
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
for dizziness, recurrent falls and decreased oral intake.
Family did noted as symptoms began most significantly about a week ago where she essentially stopped eating.� She was only supplemented myself with the boost or Ensure.� Patient reports decreased appetite but denies any difficulty with chewing or
swallowing.� She denies vomiting.� She denies regurgitation.� She denies abdominal pain or discomfort.� After the fall recently she did have right-sided upper quadrant/CVA pain.� She does report increased urinary frequency.� She believes is
secondary to stimulator that she has in her back.� She denies dysuria.� She denies hematuria.� Patient denies dyspepsia, hematemesis, melena or hematochezia.� She denies having any diarrhea.� She has not had any fevers or chills.� She denies cold
cough or flulike symptoms.� She is mostly inactive but denies any specific weakness.� She has noncommittal statement regarding heat or cold intolerance.� She denies any changes to the color of her eyes or skin or changes to the color of her stool.�
She was seen at the PMD clinic about a month ago and at that time was noted to have significantly elevated triglycerides in the 500s, elevated cholesterol as well uncontrolled blood glucose in the 300s.� Patient reports compliance with medication
but not convincingly so.� She denies vertigo.� She does feel lightheaded and has to hold onto something when she is standing and walking.
On arrival in the ED she was normotensive, nontachycardic with a oxygen saturation of 90% on nasal cannula.� ECG w/ NSR, no acute ST or t wave changes.� Troponin was 0.05.� She has no chest pain.� Chest x-ray was clear with some atelectasis.� CT of
the head was negative.� UA was unremarkable.� COVID test was negative.� CBC was unremarkable.� Chemistries does show hyponatremia with a sodium of 129, azotemia with a BUN of 69 and a creatinine of 1.6 with a blood glucose of 314.� Magnesium was 1.2.
1. Azotemia - Suspect KENNA with pre-renal azotemia in setting of polyuria, decreased po intake and continued losarta/hctz use.
- admit to tele on account of abnormal trop/has remained in sinus rhythm
- continue iv fluids with normal saline at 100 ml/hr/will reduce down to 60 cc/h
- daily orthostatic vital signs
-PT/OT
- avoid nephrotoxin
-After hydration we will reintroduce ARB but would hold off on further hydrochlorothiazide for now
2. Troponin elevation - Non-cardiac elevation.� Normal ECG.� No chest pain.�
- telemetry, cycle enzymes, d/c telemetry if enzymes stable.
- continue aspirin and statin
- repeat ECG in am
3. Hyperglycemia - DM II on dulaglutide and glipizide.� Last A1c in sep 10.8.� glucose 340 at outpatient clinic.� Urinary frequency likely secondary to polyuria.� Suspect non-adherence
- start insulin bolus and sliding scale
- continue glipizide 10 daily for now/apparently had been on Trulicity unclear how compliant she was with this and some not sure
- check a1c up to 8.9 no recent value to compare
-Will get diabetic OPTIMIZATION MANAGER to evaluate/probably contributing to her overall poor hydration status
-Diabetic OPTIMIZATION MANAGER has added Januvia, and extra dose of glipizide at 5 mg to the 10 mg already on.
- IV fluids can be discontinued
4. Hyponatremia - hypovolemic hyponatremia suspected.�/Resolved
- Iv fluids continue but reduce rate
- orthostatics
- check tsh
5.� Hypercalcemia -� Ca 12.8.� On calcium and Vit D supplementation.� Possibly also dehydrated.�
- IV fluids as above/seem to be trending down with fluids down to 11.2 today
- check pth and vitamin d
- hold calcium and vitamin supplementation�
6. RUQ discomfort - Mild TTP.� Normal LFTs.� Checking lipase and trig levels given elevated trig to around 500 on routine tests at office in september
- continue statin for now
- antiemetics and pain control
7. FTT - depression vs hypothyroid
- check tsh was normal, b12, folate,normal
- continue vitamin supplementation
- consider thiamine supplementation
- pt eval did poorly and needs two-person assist will need rehab/inform son of same/will need referral to SNF facility and eventual long-term care facility after discussion with patient's son
DVT PPX with lovenox sq
code status Full code
Anticipated Discharge: Within 24 hours
Subjective/Interval History
-
Date of Service: November 07, 2023
Confusion keeps asking for her purse believes she can function at home but in reality has been falling frequently and son concerned of failure to thrive issues and her dementia that seems to be advancing. This will portend further issues with
rehospitalization due to inability to manage her medications including her diabetes
Objective Data
-
Labs:
Laboratory Results
11/07/23
07:48
WBC 5.9
Hgb 8.8 L
Hct 25.5 L
Plt Count 170
Sodium 138
Potassium 4.5
Chloride 106
Carbon Dioxide 24
BUN 38 H
Creatinine 1.3 H
Glucose 155 H
Calcium 9.6
Vital Signs:
Vital Signs
Temp Pulse Resp BP Pulse Ox
98.4 F 91 18 144/77 96
11/07/23 07:30 11/07/23 07:30 11/07/23 07:30 11/07/23 07:30 11/07/23 07:30
I&O
11/06/23 11/07/23 11/08/23
06:59 06:59 06:59
Intake Total 1320 / 1320 2910 / 2910
Balance 1320 / 1320 2910 / 2910
Review of Systems
-
Unable to obtain full review of systems at this time due to: Dementia
History Source: Patient and Family
All other systems: Reviewed and negative
EENT: Reports No Symptoms Reported
Respiratory: Reports No Symptoms
Abdomen/GI: Reports No Symptoms
Neuro: Reports Weakness
Psych: Reports Other (Underlying dementia)
Physical Exam
-
General: Appears Chronically Ill
HEENT: Normocephalic
Respiratory: Clear to Auscultation
Cardiac: Regular Rhythm
GI: Soft and Nontender
Musculoskeletal: Edema, Right Lower Extrem, Edema, Left Lower Extrem, Normal Gait & Station (Required 2 person assist and PT for transfers and demonstrated significant weakness in both lower extremities without pain) and Other
Psych: Confused and Anxious
Data Reviewed
-
Total Time Spent with Patient (in minutes): 56
Labs: Labs Reviewed by me (Electrolyte status is stabilized and appears to have reached her baseline renal status)
--- NOTE | 2023-11-07 11:03 | CM ---
Addendum entered by Elyssa Jay 11/07/23 16:22:
Patient approved for skilled level 1, 7 days 11/07-11/12, next review 11/12, fax to [phone]. Auth number [id number], ambulance auth [id number].
Original Note:
Patient seen bedside with son, discussed recommendation for SNF. Patient was hesitant and concerned about her animals at home, patients son reassured patient that he is caring for her animals. CM spoke with Jaylin at [facility], able to accept
patient for SNF and discussed possible LTC transition. CM sent messaged to PT to request patient seen to start insurance auth. Per patients nurse, patient has not had BM during hospital stay, TT sent to Hospitalist. CM will continue to follow for
discharge planning needs.
Plan; [facility] SNF once updated PT notes, will need insurance auth.
[2023-11-07] MEDS: MIRALAX 17 GRAMS PO (11:35)
[2023-11-07] MEDS: DULCOLAX 10 MG RECTAL (11:35)
[2023-11-07 12:01] LABS: Glucose - Point of Care 281 mg/dl (70-99)
[2023-11-07] MEDS: NOVOLOG FLEXPEN-LOW RESISTANCE 3 UNITS SC ×2 (12:01→16:58)
[2023-11-07 16:51] LABS: Glucose - Point of Care 263 mg/dl (70-99)
[2023-11-07] MEDS: GLUCOTROL 5 MG PO (16:59)
[2023-11-07 21:28] LABS: Glucose - Point of Care 189 mg/dl (70-99)
[2023-11-07] MEDS: TYLENOL 650 MG PO (22:27)
[2023-11-08 07:00] VITALS: BP 142/78
[2023-11-08 08:55] LABS: Glucose - Point of Care 181 mg/dl (70-99)
--- NOTE | 2023-11-08 09:27 | W.DS.TRANS ---
DC Summary - Senior Case Manager
-
Discharge Instructions:
Discharge Diagnosis/Procedures Failure to thrive
Frequent falls
Poorly controlled type 2 diabetes mellitus
Hyponatremia and hypovolemia resolved
Diet Diabetic, Carb Controlled
Activity As tolerated,With Walker
Driving Restrictions No driving
Instructions:
Stand-Alone Forms:
Changes to Home Medications: No
Discharge Medications:
DC Medications w/original date entered in [employer]
Ca 600 mg-D3 20 mcg-mag oxide 50 bg-Qn-trbdxe-manganese-boron tablet (Calcium 600-D3 Plus (mag-zinc)) 2 ea PO DAILY Supplement 06/12/18
ascorbic acid (vitamin C) 500 mg tablet (Vitamin C) 1,000 mg PO DAILY Supplement 06/12/18
atorvastatin 40 mg tablet 40 mg PO DAILY High Cholesterol 06/12/18
cholecalciferol (vitamin D3) 50 mcg (2,000 unit) tablet 2,000 unit PO DAILY Supplement 06/12/18
glipizide 5 mg tablet 10 mg PO DAILY Diabetes 06/12/18
aspirin 81 mg tablet,delayed release 81 mg PO DAILY Blood Clot Prevention/Tx 11/04/23
cyanocobalamin (vitamin B-12) 1,000 mcg tablet 1,000 mcg PO DAILY Supplement 11/04/23
dulaglutide 1.5 mg/0.5 mL subcutaneous pen injector (Trulicity) 1.5 mg SC TINAJERO Diabetes 11/04/23
fexofenadine 180 mg tablet 180 mg PO DAILY Allergies 11/04/23
fiber 2 tab PO BID Constipation 11/04/23
glipizide 5 mg tablet 5 mg PO QPM Diabetes 11/04/23
peppermint oil 90 mg capsule,delayed,extended release (IBgard) 90 mg PO TID 11/04/23
venlafaxine 225 mg tablet,extended release 24 hr 225 mg PO DAILY Mental Health/Anxiety 11/04/23
losartan 100 mg tablet 100 mg PO DAILY #30 tabs 11/07/23
magnesium oxide 500 mg PO DAILY #30 tabs 11/07/23
polyethylene glycol 3350 17 gram oral powder packet (HealthyLax) 17 g PO DAILY PRN constipation #14 ea 11/07/23
sitagliptin phosphate 50 mg tablet (Januvia) 50 mg PO DAILY #30 tabs 11/07/23
Home Medication Changes
magnesium oxide 500 mg PO DAILY #30 tabs 11/07/23
polyethylene glycol 3350 17 gram oral powder packet (HealthyLax) 17 g PO DAILY PRN constipation #14 ea 11/07/23
sitagliptin phosphate 50 mg tablet (Januvia) 50 mg PO DAILY #30 tabs 11/07/23
Pending Results: No
Total time spent discharging patient (in min): 45
[2023-11-08] MEDS: HEPARIN 5000 UNITS SC (09:57)
[2023-11-08] MEDS: EFFEXOR XR 225 MG PO (09:57)
[2023-11-08] MEDS: MAGNESIUM OXIDE 500 MG PO (09:57)
[2023-11-08] MEDS: NOVOLOG FLEXPEN-LOW RESISTANCE 1 UNITS SC (09:57)
[2023-11-08] MEDS: GLUCOTROL 10 MG PO (09:58)
[2023-11-08] MEDS: ASPIR LOW (ENTERIC COATED) 81 MG PO (09:58)
[2023-11-08] MEDS: CLARITIN 10 MG PO (09:58)
[2023-11-08] MEDS: VITAMIN B-12 1000 MCG PO (09:58)
[2023-11-08] MEDS: COZAAR 100 MG PO (09:58)
[2023-11-08] MEDS: JANUVIA 50 MG PO (09:58)
[2023-11-08] MEDS: MIRALAX 17 GRAMS PO (09:58)
[2023-11-08] MEDS: LIPITOR 40 MG PO (09:58)
[2023-11-08] MEDS: DESENEX/MITRAZOL/ZEASORB 1 APPLIC TOPICAL (10:02)
--- NOTE | 2023-11-08 10:31 | CM ---
MD entered order for discharge.
Spoke with Alejo [phone](covering for Jaylin) from [facility] approved for skilled level 1, 7 days 11/07-11/12, next review 11/12, fax to [phone]. Auth number [id number], Bed ready.
Spoke with son Alec he agrees with dc for today to [facility] . IMM reviewed he stated he agrees with dc to SNF.
He also agrees with ambulance . Medical nec form completed ambulance auth [id number].workers compensation legal secretary to set up .
[facility] Pt
report [phone]

PLAN:To [facility] via ambulance
--- NOTE | 2023-11-08 10:46 | W.DCSUMMARY ---
Discharge Summary
Discharge Data
Date of Admission: 11/04/23
Date of Discharge: 11/08/23
-
Pending Results: No
Hospital Course
83-year-old female who has been living alone and presented on 03 November with failure to thrive overall with recurrent falls dizziness and diminished appetite she is a type II diabetic and is also history of hypertension CVA and hyperlipidemia. Her
presentation also showed hypovolemia on on clinical status and chemistries consistent with low volume state and an A1c was measured at 8.9% she apparently had been on Trulicity once a week was and was under the impression she never had to check her
blood sugars ever again she is on a poor diet with poor supplementation and oral intake of both fluids and nutrition. She has had multiple falls apparent by her multiple ecchymosis noted more so to the right side than left he does have a stimulator
to her back chest x-ray was clear without significant inflammatory infiltrate a CT of the head was unremarkable urinalysis likewise was unremarkable she tested COVID-negative and CBC was largely unremarkable chemistries again showed hyponatremia and
a BUN of 69 with a creatinine 1.6 and a blood sugar of 314 with a magnesium of 1.2 of these were repleted with improvement in renal status with IV hydration after admission on speaking the patient's son who works here it is apparent that the
patient's been slowly been going downhill as far as her levels of nutrition and proper upkeep and her recurrent falls she does have underlying dementia based on our exam she is needs to be frequently redirected she has poor orientation and is in
denial over her situation at home.
Based on her poorly controlled diabetic status we obtained nurse practitioner management of for her diabetes and Januvia was added to her medication regime along with increasing her glipizide from 10 mg daily to 10 mg +5 mg daily.
She was seen by physical therapy and Occupational Therapy who concurred with the need for weight rehab placement for her levels of deconditioning and frequent falls and ambulatory dysfunction it is felt that this point the patient will eventually
transition to long-term care status given her inability to thrive at home and her underlying dementia this has been discussed with patient's son and is in agreement. She is deemed stable for discharge on this date with adjustments made as noted
above
Discharge Plan
-
Patient Disposition: Group Home/SNF
Discharge Diagnosis/Procedures: Failure to thrive
Frequent falls
Poorly controlled type 2 diabetes mellitus
Hyponatremia and hypovolemia resolved
Diet: Diabetic, Carb Controlled
Activity: As tolerated and With Walker
Driving Restrictions: No driving
Referrals:
Alejandro Hernandez MD [Family Provider] -
Prescriptions:
New
polyethylene glycol 3350 [HealthyLax] 17 gram Powder In Packet
17 g PO DAILY PRN (Reason: constipation) Qty: 14 0RF
magnesium oxide 500 mg magnesium Tablet
500 mg PO DAILY Qty: 30 0RF
losartan 100 mg Tablet
100 mg PO DAILY Qty: 30 0RF
Januvia 50 mg Tablet
50 mg PO DAILY Qty: 30 0RF
Continued
atorvastatin 40 MG tablet
40 mg PO DAILY
ascorbic acid (vitamin C) [Vitamin C] 500 MG tablet
1,000 mg PO DAILY
glipizide 5 MG tablet
10 mg PO DAILY
cholecalciferol (vitamin D3) 2,000 UNITS tablet
2,000 unit PO DAILY
Ca-D3-mag kl-vefy-yps-sherlyn-bor [Calcium 600-D3 Plus (mag-zinc)] 1 EACH tablet
2 ea PO DAILY
cyanocobalamin (vitamin B-12) 1,000 mcg Tablet
1,000 mcg PO DAILY
fexofenadine 180 mg Tablet
180 mg PO DAILY
aspirin 81 mg Tablet,Delayed Release (Dr/Ec)
81 mg PO DAILY
glipizide 5 mg Tablet
5 mg PO QPM
fiber Tablet,Chewable
2 tab PO BID
venlafaxine 225 mg Tablet Extended Release 24hr
225 mg PO DAILY
Trulicity 1.5 mg/0.5 mL Pen Injector
1.5 mg SC TINAJERO
IBgard 90 mg Capsule,Delayed,Extend.Release
90 mg PO TID
Discontinued
losartan-hydrochlorothiazide 100-25 mg Tablet
1 tab PO DAILY
Patient Comments:
no pharmacy data for fills
Discharge Orders:
Discharge Patient (As Directed); Ordered 11/08/23
Ordered By: Roldan Clements
[2023-11-08 11:00] VITALS: BP 145/70
--- NOTE | 2023-11-08 11:09 | PN.DE.MGMTRT ---
Insulin Management
- -
11/08/2023 Diabetes Management Follow up
Patient admitted 11/03 with failure to thrive, recurrent falls, dizzy, incontinence and decreased appetite. A1C 8.9%. Pt with history of dementia, confusion. She is awake and pleasant. She cannot participate in discussion of diabetes medications.
She has restarted on the glipizide 10 mg with breakfast and 5 mg with dinner and Januvia has been added, 50 mg daily. Glucose is improved but did have one elevation yesterday. Due to dementia and comorbidities will make no change to current
regimen. Patient for discharge to SNF.
Diabetes History
- -
Type of Diabetes: 2
Pre-Admission Diabetes Regimen
Lab Results
Hemoglobin A1c 8.9 % (4.0-5.6) H 11/05/23 07:52
Insulin Pump Settings
IP Diabetes Regimen
11/07/23 11/07/23 11/07/23
11:59 16:49 21:26
POC Glucose 281 H 263 H 189 H
11/08/23
08:51
POC Glucose 181 H
Meal type: Breakfast
Meal type: Lunch
Amount consumed: 100%
Amount consumed: 100%
Patient Education
== END 2023-11-08 13:32 | DRG 683 ==
LOC: 4 EAST ACU 18:13
PROVIDERS: Physician Assistant; ADMITTING PHYSICIAN Internal Medicine; ATTENDING PHYSICIAN Internal Medicine; EMERGENCY PHYSICIAN Emergency Medicine; FAMILY PHYSICIAN Family Medicine
DX: N17.9 Acute kidney failure, unspecified (principal); E87.1 Hypo-osmolality and hyponatremia; I69.351 Hemiplegia and hemiparesis following cerebral infarction affecting right dominant side; J98.11 Atelectasis; E11.65 Type 2 diabetes mellitus with hyperglycemia; I10 Essential (primary) hypertension; R29.6 Repeated falls; F03.90 Unspecified dementia, unspecified severity, without behavioral disturbance, psychotic disturbance, mood disturbance, and anxiety; R35.0 Frequency of micturition; E83.52 Hypercalcemia; E83.42 Hypomagnesemia; R62.7 Adult failure to thrive; Z79.84 Long term (current) use of oral hypoglycemic drugs
CPT/HCPCS: 70450; 71101; 80048; 80053; 80061; 81003; 81015; 82306; 82550; 82607; 82962; 83036; 83690; 83721; 83735; 83970; 84443; 84478; 84484; 85025; 85027; 87086; 87811; 93005; 96361; 96365; 97163; 97167; 97530; 99285

== ENCOUNTER → 2024-08-15 13:14 | Outpatient (REF) | payer MEDICARE, OTHER, SELFPAY | LOC: HWRAD 13:14 | PROVIDERS: ATTENDING PHYSICIAN Nurse Practitioner Adult Health | DX: R42 Dizziness and giddiness (principal) | CPT/HCPCS: 70450; 70480 ==